=== PATIENT | female | born 1975 | race Caucasian/White ===

== ENCOUNTER 2022-11-01 08:06 | Emergency (ER) | payer OTHER, MEDICAID, SELFPAY ==
[2022-11-01] VITALS (8 sets, daily range): BP systolic 120; BP diastolic 73–81; PULSE 70–84; RESP 18; TEMP 36.6; O2SAT 95–98; BMI 22.6
--- NOTE | 2022-11-01 08:33 | ED_ITS ---
HPI - Back Pain/Injury General Chief Complaint: Back Pain/Injury Stated Complaint: severe back pain, difficulty walking, fever Time Seen by Provider: 11/01/22 08:15 Source: patient History of Present Illness HPI Narrative: Patient is a 47-year-old healthy female who presents with a variety of symptoms. She has been having ongoing left hip pain since about May. Has progressively gotten worse unable to weightbear. She went to orthopedics who said that there was nothing that they could for her. Over the last 5-6 days it has crossed over to her right hip she can now can not lay on either hip. Orthopedics did have do a cortisone shot in her left hip which she said helped for about 3 weeks but now she is back to where she started. She has had night sweats. She is had some weight gain. She has some chest discomfort only when she lays down at night on occasion she currently has no chest pain. No chills. She has some random hematuria that comes and goes she is been seen by Urology. She has an appoint with a new PCP but not until the end of December. Orthopedics suggested that she have a rheumatology referral. She has known osteoarthritis in her left hand however it does not appear based on x-rays and CTs done at outside facilities that I do not have records of that there is no arthritis according to patient. Patient is overall extremely frustrated she feels like something is wrong she can not get comfortable she takes [id number] medications Tylenol ibuprofen without any sort of relief. Related Data Previous Rx's Medication Instructions Recorded hydrochlorothiazide 12.5 mg capsule 12.5 mg PO DAILY Edema #30 caps 02/06/19 cyclobenzaprine 5 mg tablet 5 mg PO TID PRN muscle spasm #10 11/01/22 tabs lidocaine 5 % topical patch 1 patch topical DAILY PRN pain 11/01/22 (scale score 4-6) #30 ea prednisone 10 mg tablet 10 mg PO DAILY #30 tabs 11/01/22 Allergies Allergy/AdvReac Type Severity Reaction Status Date / Time Penicillins [PENICILLINS] Allergy Unknown Unverified 02/06/19 10:09 Review of Systems Review of Systems ROS Unobtainable: All systems reviewed & are unremarkable except as noted in HPI and below Patient History Medical History Abnormal Pap smear of cervix (~1992) Cervical cancer (~1992) Dysentery (~2001) Fibroids (~2014) Heavy menstrual period (~2010) Ovarian cyst (~2014) Painful menstrual periods (~2010) Surgical History Anesthesia Status post laparoscopic hysterectomy (~01/19/18) Family History Father Seizure Mother Colon cancer Social History Smoking Status: Current some day smoker Smoking Status: Current some day smoker Exam Initial Vital Signs Initial Vital Signs: Vital Signs Temperature 97.8 F 11/01/22 08:10 Pulse Rate 84 11/01/22 08:10 Respiratory Rate 18 11/01/22 08:10 Blood Pressure 120/73 11/01/22 08:10 Pulse Oximetry 98 11/01/22 08:10 Oxygen Delivery Method 11/01/22 08:10 GENERAL: Alert tearful 47-year-old female and in no acute distress. HEENT: Head atraumatic,EOMI, pupils reactive, face symmetric, moist mucous membranes CARDIOVASCULAR: Regular rate and rhythm without murmurs, rubs or gallops. RESPIRATORY: Breath sounds equal bilaterally, no wheezes rales or rhonchi. ABDOMEN: Soft, nontender. Normoactive bowel sounds all 4 quadrants. No guarding or rebound. BACK: No vertebral tenderness no step-offs, tender and sacroiliac joints. : No CVA tenderness EXTREMITIES: Normal range of motion, no clubbing or edema. Neurovascularly intact. No pain with internal external flexion no pain with direct palpation on iliac crests. Pain only with weight-bearing in hips. NEUROLOGICAL: Alert and oriented x4.Normal gait and speech. SKIN: Warm, dry, no laceration, no petechiae, no rashes or lesions. Course Orders Ordered: ED Orders 11/01/22 08:30 Urinalysis and Microscopic Stat 11/01/22 08:31 CBC Auto Diff [Complete Blood Count AUTO DIFF] Stat CMP [Comprehensive Metabolic Panel] Stat CRP [C-Reactive Protein Quant] Stat ESR [Erythrocyte Sedimentation Rate] Stat Lactate (Lactic Acid) Stat Procalcitonin Stat RF [Rheumatoid Factor] Stat Vital Signs Vital signs: Vital Signs - 8 hr 01/29/23 08:10 11/01/22 08:30 11/01/22 09:00 Temperature 97.8 F Pulse Rate 84 83 75 Respiratory Rate 18 18 Blood Pressure 120/73 120/73 Pulse Oximetry 98 96 96 Oxygen Delivery Method Room Air 11/01/22 09:30 Temperature Pulse Rate 70 Respiratory Rate Blood Pressure Pulse Oximetry 98 Oxygen Delivery Method MDM - Back Pain/Injury Lab Data 11/01/22 08:31 11/01/22 08:31 Labs: Lab Results 11/01/22 11/01/22 11/01/22 Range/Units 08:30 08:31 08:31 WBC 7.0 (4.5-11.0) X10^3/uL RBC 4.54 (4.0-5.2) X10^6/uL Hgb 14.1 (12.0-16.0) g/dL Hct 42.1 (36-46) % MCV 92.8 (80-100) fL MCH 31.0 (26-34) PG MCHC 33.4 (30-36) % RDW 12.5 (11.6-14.8) % Plt Count 420 H (150-400) X10^3/uL Neut % (Auto) 58.9 (50-75) % Lymph % (Auto) 31.2 (25-40) % Nelson % (Auto) 8.5 (3-14) % Eos % (Auto) 1.1 L (2-4) % Baso % (Auto) 0.3 (0-2) % Neut # (Auto) 4100 (1971-0177) /uL Lymph # (Auto) 2200 (6804-6350) /uL Nelson # (Auto) 600 (0-900) /uL Eos # (Auto) 100 (0-450) /uL Baso # (Auto) 0 (0-100) /uL ESR 3 (0-20) MM/HR Sodium 140 (137-145) mmol/L Potassium 4.0 (3.4-5.1) mmol/L Chloride 104 (98-107) mmol/L Carbon Dioxide 23 (22-32) mmol/L BUN 8 (7-17) mg/dL Creatinine 0.55 (0.52-1.04) mg/dL Estimated GFR > 60 (>60) mL/min BUN/Creatinine Ratio 14.5 (6-22) Glucose 87 (70-100) mg/dL Lactate (0.7-2.1) mmol/L Calcium 9.6 (8.4-10.2) mg/dL Total Bilirubin 0.5 (0.2-1.3) mg/dL AST 37 H (14-36) IU/L ALT 27 (<35) IU/L Alkaline Phosphatase 69 (38-126) U/L C-Reactive Protein < 0.5 (<1.0) mg/dL Total Protein 7.9 (6.3-8.2) g/dL Albumin 4.6 (3.5-5.0) g/dL Globulin 3.3 (1.7-4.1) g/dL Albumin/Globulin Ratio 1.4 (1.0-2.8) Procalcitonin (<0.5) ng/mL Urine Color Yellow Urine Appearance Clear Urine pH 6.0 (4.5-8.0) Ur Specific [place] 1.010 (1.000-1.035) Urine Protein Negative (Negative) Urine Glucose (UA) Negative (Negative) g/dL Urine Ketones Negative (NEGATIVE) Urine Occult Blood 2+ H (Negative) Urine Nitrate Negative (Negative) Urine Bilirubin Negative (NEGATIVE) Urine Urobilinogen 0.2 (0.2) E.U./dL Ur Leukocyte Esterase Negative (NEGATIVE) Urine RBC 1-5/hpf (0-5/HPF) Urine WBC 0-1/hpf (0-5/HPF) Ur Squamous Epith Cells 1-5 /hpf (0-5/HPF) Urine Bacteria Few (2-10) H (None) Urine Yeast 0-1/hpf (None) Ur Culture Indicated? Cult not indicated Rheumatoid Factor < 8.6 (<12.0) IU/mL 11/01/22 11/01/22 Range/Units 08:31 08:31 WBC (4.5-11.0) X10^3/uL RBC (4.0-5.2) X10^6/uL Hgb (12.0-16.0) g/dL Hct (36-46) % MCV (80-100) fL MCH (26-34) PG MCHC (30-36) % RDW (11.6-14.8) % Plt Count (150-400) X10^3/uL Neut % (Auto) (50-75) % Lymph % (Auto) (25-40) % Nelson % (Auto) (3-14) % Eos % (Auto) (2-4) % Baso % (Auto) (0-2) % Neut # (Auto) (7282-9932) /uL Lymph # (Auto) (8086-1558) /uL Nelson # (Auto) (0-900) /uL Eos # (Auto) (0-450) /uL Baso # (Auto) (0-100) /uL ESR (0-20) MM/HR Sodium (137-145) mmol/L Potassium (3.4-5.1) mmol/L Chloride (98-107) mmol/L Carbon Dioxide (22-32) mmol/L BUN (7-17) mg/dL Creatinine (0.52-1.04) mg/dL Estimated GFR (>60) mL/min BUN/Creatinine Ratio (6-22) Glucose (70-100) mg/dL Lactate 1.3 (0.7-2.1) mmol/L Calcium (8.4-10.2) mg/dL Total Bilirubin (0.2-1.3) mg/dL AST (14-36) IU/L ALT (<35) IU/L Alkaline Phosphatase (38-126) U/L C-Reactive Protein (<1.0) mg/dL Total Protein (6.3-8.2) g/dL Albumin (3.5-5.0) g/dL Globulin (1.7-4.1) g/dL Albumin/Globulin Ratio (1.0-2.8) Procalcitonin 0.04 (<0.5) ng/mL Urine Color Urine Appearance Urine pH (4.5-8.0) Ur Specific [place] (1.000-1.035) Urine Protein (Negative) Urine Glucose (UA) (Negative) g/dL Urine Ketones (NEGATIVE) Urine Occult Blood (Negative) Urine Nitrate (Negative) Urine Bilirubin (NEGATIVE) Urine Urobilinogen (0.2) E.U./dL Ur Leukocyte Esterase (NEGATIVE) Urine RBC (0-5/HPF) Urine WBC (0-5/HPF) Ur Squamous Epith Cells (0-5/HPF) Urine Bacteria (None) Urine Yeast (None) Ur Culture Indicated? Rheumatoid Factor (<12.0) IU/mL Urine Dip Bedside Urine Glucose Negative Bedside Urine Bilirubin - Negative Bedside Urine Ketone - Negative Urine Specific [place] 1.010 Bedside Urine Occult Blood ++ Bedside Urine pH 6.0 Bedside Urine Protein - Negative Bedside Urine Urobilinogen - Negative Bedside Urine Nitrite - Negative Bedside Urine Leukocytes - Negative Esterase MDM Narrative Medical decision making narrative: Patient 47-year-old female who has had a variety of symptoms ongoing since May with progressive worsening sacroiliac pain and bilateral hip pain. It hurts to ambulate and weightbear in both hips but not necessarily with internal external movement. Blood work is overall reassuring. No leukocytosis normal ESR CRP she is a negative rheumatoid factor. MELE is pending. She responded well to a cortisone shot in her left hip. She has no other signs or symptoms no bowel disease she was having chest pain but only at night. Might be beneficial for rheumatology consult however she has state see her PCP 1st. She has no back pain rare to be ankylosing spondylitis at the age of 47. She has pain in multiple joints I do not think this is avascular necrosis of the left hip. It is not bursitis. No need for antibiotics. At this time we discussed pain management at home until she got into a primary care provider. I think steroid taper would benefit her possibly lidocaine patches and she is needing something else to sleep at night as well. She and I did discuss CT scan however she is clearly ambulating there is no injury she really would benefit from an MRI of her pelvis however this is not indicated or needed emergently this could also be done as an outpatient. She u nderstands that. She declines a CT scan today. She is still frustrated but understands we did do some workup today. Discharge Plan Departure Patient Disposition: Home Clinical Impression: Sacroiliac inflammation Instructions: Sacroiliac Joint Pain, DI Sacroiliac Joint Dysfunction Activity Restrictions/Additional Instructions: *You have been diagnosed with sacroiliac pain *What to do: At this time I do not have complete diagnosis for you. However you seem to be tender in sacroiliac region. Some of your blood work is still pending and will be a send out. Other blood work today is reassuring. No need for antibiotics. *Continue to take medications as directed --> SENT TO [facility] IN [place] Prednisone 40 mg once a day for 3 days, 30 mg once a day for 3 days, 20 mg once a day for 3 days, 10 mg once a day for 3 Flexeril 5 mg every 8 hours if needed for muscle spasm may try night to help with sleeping Lidocaine patches apply to area of pain for 12 hours only then remove. *Follow up with your primary care provider in 2-3 days or call [phone] *Return to ER if you should have increasing pain fever inability to walk or any new, worsening or concerning symptoms Prescriptions: New prednisone 10 mg tablet 10 mg PO DAILY Qty: 30 0RF Rx Instructions: day 1-3: 40 mg once a day day 4-6: 30 mg once a day day 7-9: 20 mg once a day day 10-12: 10 mg once a day lidocaine 5 % adhesive patch,medicated 1 patch topical DAILY PRN (Reason: pain (scale score 4-6)) Qty: 30 0RF Rx Instructions: leave on most painful area for up to 12 hrs then remove cyclobenzaprine 5 mg tablet 5 mg PO TID PRN (Reason: muscle spasm) Qty: 10 0RF No Action hydrochlorothiazide 12.5 mg capsule 12.5 mg PO DAILY Qty: 30 2RF Referrals: Jason Iglesias, [Primary Care Provider] - Stand Alone Forms: Patient Portal/API
[2022-11-01 08:49] LABS: Appearance Urine UA CLEAR; Bilirubin Urine UA NEGATIVE (NEGATIVE); Color Urine UA YELLOW; Glucose Urine UA NEGATIVE (Negative); Ketones Urine UA NEGATIVE (NEGATIVE); Leukocyte Esterase Urine UA NEGATIVE (NEGATIVE); Nitrite Urine UA NEGATIVE (Negative); Occult Blood Urine UA 2+ (Negative); Protein Urine UA NEGATIVE (Negative); Urobilinogen Urine UA 0.2 E.U./dL (0.2)
[2022-11-01 09:07] LABS: Bacteria Urine Few (2-10); Culture Indicated Urine Cult Not Indicated; RBC Urine 1-5/HPF (0-5/HPF); Squamous Epithelial Cell Urine 1-5 /HPF (0-5/HPF); WBC Urine 0-1/HPF (0-5/HPF)
[2022-11-01 09:11] LABS: Add Manual Diff / Slide Review NO; Basophils Absolute Auto 0 /uL (0-100); Basophils Percent Auto 0.3 % (0-2); Eosinophils Absolute Auto 100 /uL (0-450); Eosinophils Percent Auto 1.1 % (2-4); Hematocrit 42.1 % (36-46); Hemoglobin 14.1 g/dL (12.0-16.0); Lymphocytes Absolute Auto 2200 /uL (1100-4500); Lymphocytes Percent Auto 31.2 % (25-40); Mean Corpuscular HGB Conc 33.4 % (30-36); Mean Corpuscular Volume 92.8 fL (80-100); Monocytes Absolute Auto 600 /uL (0-900); Monocytes Percent Auto 8.5 % (3-14); Neutrophils Absolute Auto 4100 /uL (1500-7000); Neutrophils Percent Auto 58.9 % (50-75); Platelet Count 420 X10^3/uL (150-400); Red Blood Cell Count 4.54 X10^6/uL (4.0-5.2); Red Cell Distribution Width 12.5 % (11.6-14.8)
[2022-11-01 09:16] LABS: Alanine Aminotransferase 27 IU/L (<35); Albumin 4.6 g/dL (3.5-5.0); Albumin Globulin Ratio 1.4 (1.0-2.8); Alkaline Phosphatase 69 U/L (38-126); Aspartate Aminotransferase 37 IU/L (14-36); BUN Creatinine Ratio 14.5 (6-22); Bilirubin Total 0.5 mg/dL (0.2-1.3); Blood Urea Nitrogen 8 mg/dL (7-17); C-Reactive Protein Quant < 0.5 mg/dL (<1.0); Calcium 9.6 mg/dL (8.4-10.2); Carbon Dioxide 23 mmol/L (22-32); Chloride 104 mmol/L (98-107); Estimated Glomerular Filt Rate > 60 mL/min (>60); Globulin 3.3 g/dL (1.7-4.1); Glucose 87 mg/dL (70-100); HEMOLYSIS < 15 (0-50); Rheumatoid Factor < 8.6 IU/mL (<12.0); Sodium 140 mmol/L (137-145); Total Protein 7.9 g/dL (6.3-8.2)
[2022-11-01 09:30] LABS: Erythrocyte Sedimentation Rate 3 MM/HR (0-20)
[2022-11-01 10:23] LABS: Lactate (Lactic Acid) 1.3 mmol/L (0.7-2.1)
[2022-11-01 10:43] LABS: Procalcitonin 0.04 ng/mL (<0.5)
[2022-11-10 16:31] LABS: ANA Screen, IFA Negative (.)
== END 2022-11-01 10:52 | disposition home or self-care (01) ==
PROVIDERS: Emergency Provider Emergency Medicine; PCP Family Medicine
DX: M46.1 Sacroiliitis, not elsewhere classified (principal)
CPT/HCPCS: 36415; 80053; 81001; 81003; 83605; 84145; 85025; 85651; 86038; 86140; 86430; 99283

== ENCOUNTER 2022-11-25 11:23 | Emergency (ER) | payer OTHER, MEDICAID, SELFPAY ==
--- NOTE | 2022-11-25 11:26 | DI.RAD.S_ITS ---
PROCEDURE: XR CHEST 1V INDICATIONS: chest pain TECHNIQUE: One view of the chest was acquired. COMPARISON: None. FINDINGS: Surgical changes and devices: None. Lungs and pleura: Lungs are clear. No pleural effusions or pneumothorax. Mediastinum: Mediastinal contours appear normal. Heart size is normal. Bones and chest wall: No suspicious bony lesions. Minimal levoconvex scoliotic curvature is seen. Overlying soft tissues appear unremarkable. IMPRESSION: Portable chest within normal limits. Dictated by: Kemal Marks M.D. on 11/25/2022 at 10:44 Approved by: Kemal Marks M.D. on 11/25/2022 at 10:44
[2022-11-25 11:28] VITALS: BP 164/88; PULSE 79; RESP 19; TEMP 36.9; O2SAT 99; BMI 22.8
--- NOTE | 2022-11-25 11:35 | ED_ITS ---
HPI - Chest Pain General Chief Complaint: Chest Pain Stated Complaint: Chest pain since 529 Time Seen by Provider: 11/25/22 11:26 History of Present Illness HPI narrative: 47-year-old female smoker with history of hypertension and hyperlipidemia presents by [facility] for evaluation of chest pain that started at about 530 this morning. She states that she is been having trouble sleeping and was actually already awake at 1:00 a.m.. She states her pain started while at rest and was on the right side of her chest and came in waves every 10-15 minutes. She denies any obvious provocation, palliation or radiation. She denies associated symptoms such as dizziness, weakness or lightheadedness. She has no nausea, vomiting or unexplained diaphoresis. She denies any exertional symptoms or report of exercise intolerance. She is had no recent travel, trauma and denies any lower extremity pain, swelling or redness. She was given nitro in the field and it did not affect her symptoms whatsoever. She had resolved prior to her arrival. She is been having difficulty with systemic inflammation for the past few months and has an appointment tomorrow with her PCP, there is discussion about possibly evaluating for Lyme disease. She did have a DVT in her right lower extremity when she delivered a child 12 years ago, she is had no other clots and denies any history of cancer Related Data Previous Rx's Medication Instructions Recorded hydrochlorothiazide 12.5 mg capsule 12.5 mg PO DAILY Edema #30 caps 02/06/19 cyclobenzaprine 5 mg tablet 5 mg PO TID PRN muscle spasm #10 11/01/22 tabs lidocaine 5 % topical patch 1 patch topical DAILY PRN pain 11/01/22 (scale score 4-6) #30 ea prednisone 10 mg tablet 10 mg PO DAILY #30 tabs 11/01/22 Allergies Allergy/AdvReac Type Severity Reaction Status Date / Time Penicillins [PENICILLINS] Allergy Unknown Unverified 02/06/19 10:09 Review of Systems Review of Systems Narrative: GENERAL: Denies chills, fatigue, malaise, fever, sweats. HEENT: Denies sinus pain, ear pain, sore throat, difficulty swallowing, dizziness. RESPIRATORY: Denies dyspnea, cough, wheezing, hemoptysis, sputum. CARDIOVASCULAR: See HPI GASTROINTESTINAL: Denies nausea, vomiting, abdominal pain, diarrhea, constipation, melena. : Denies dysuria, frequency, incontinence, hematuria, urinary retention. MUSCULOSKELETAL: denies weakness, joint pain, or bony pain SKIN: Denies rash, skin lesions, or other NEUROLOGIC: Denies weakness, headache, numbness, change in speech, confusion, seizures, incoordination. PSYCHIATRIC: No concerning psychosocial issues. 12 point review of systems is negative except for those stated above Patient History Medical History Abnormal Pap smear of cervix (~1992) Cervical cancer (~1992) Dysentery (~2001) Fibroids (~2014) Heavy menstrual period (~2010) Ovarian cyst (~2014) Painful menstrual periods (~2010) Surgical History Anesthesia Status post laparoscopic hysterectomy (~01/19/18) Family History Father Seizure Mother Colon cancer Social History Smoking Status: Current some day smoker Smoking Status: Current some day smoker Exam Narrative Exam Narrative: GENERAL: [47] year old patient appears stated age. Well-developed patient, in mild distress. HEAD: Atraumatic. Normocephalic. EYES: Pupils equal round and reactive. Extraocular motions intact. No scleral icterus. No injection or drainage. ENT: Nose without bleeding, purulent drainage. Throat without erythema, tonsillar hypertrophy or exudate. Airway patent. NECK: Trachea midline. Non tender CARDIOVASCULAR: Regular rate and rhythm without murmurs, gallops, or rubs. RESPIRATORY: Clear to auscultation. Breath sounds equal bilaterally. No wheezes, rales, or rhonchi. GASTROINTESTINAL: Abdomen soft, non-tender, nondistended. EXTREMITIES: No edema or joint tenderness. BACK: Nontender without deformity or crepitance. No flank tenderness. NEURO: AOx3. SKIN: No rash or erythema of visible areas Initial Vital Signs Initial Vital Signs: Vital Signs Temperature 98.4 F 11/25/22 11:28 Pulse Rate 79 11/25/22 11:28 Respiratory Rate 19 11/25/22 11:28 Blood Pressure 164/88 H 11/25/22 11:28 Pulse Oximetry 99 11/25/22 11:28 Oxygen Delivery Method 11/25/22 11:28 Scores HEART Score Heart Score history: Slightly Suspicious Heart Score EKG: Normal Heart Score Age: 45-64 years old Heart Score risk factors: 1-2 risk factors Heart Score troponin: < or = to normal limit Heart Score Total: 2 Course Orders Ordered: Discontinued Medications Sodium Chloride (Normal Saline 0.9%) 1,000 mls @ 150 mls/hr IV CONT GRZEGORZ Ketorolac Tromethamine (Ketorolac 30 Mg/Ml Vial) 15 mg IV NOW ONE Stop: 11/25/22 11:27 MDM - Chest Pain ECG Data Interpretation: [1131] EKG is normal sinus rhythm rate [74 ] and free of any signs of ischemia or ectopy. No ST segmental elevation or depression. No T wave inversions MDM Narrative Medical decision making narrative: CC: Episodic right-sided chest pain for few hours, resolved prior to arrival. Complicating co-morbidities: Hypertension, prior clot Data collected from: Patient Medical records reviewed: Prior ED records reviewed Differential considered, but not limited to: Cardiac ischemia, pulmonary embolism, inflammatory change, pericarditis, pneumonia versus other Exam documented above, pertinent findings include: No reproducible pain, heart rate regular, no increased work of breathing Lab Test results independently reviewed as above. Pertinent findings: Independently reviewed EKG as above Imaging studies independently reviewed: NAP Patient elected to leave before any diagnostics could be performed. She is awake and alert with clear thought process, clear speech and capacity to make her own decisions. She understands that though our suspicions are low for a life-threatening disease that we are obviously unable to rule out any life- threatening conditions without the workup initially discussed. She understands that our recommendations are to complete this workup including labs, repeat EKGs and the risk of leaving against medical advice could include our inability to diagnose, treat and possibly intervene upon a medical condition that could be life-threatening or leave her permanently disabled. She has an appointment tomorrow and would prefer to go that route rather than stay. She understands that she may return immediately or at any time for any change in her thought process Discharge Plan Departure Patient Disposition: Left Against Medical Advice Clinical Impression: Left against medical advice Prescriptions: No Action hydrochlorothiazide 12.5 mg capsule 12.5 mg PO DAILY Qty: 30 2RF prednisone 10 mg tablet 10 mg PO DAILY Qty: 30 0RF Rx Instructions: day 1-3: 40 mg once a day day 4-6: 30 mg once a day day 7-9: 20 mg once a day day 10-12: 10 mg once a day lidocaine 5 % adhesive patch,medicated 1 patch topical DAILY PRN (Reason: pain (scale score 4-6)) Qty: 30 0RF Rx Instructions: leave on most painful area for up to 12 hrs then remove cyclobenzaprine 5 mg tablet 5 mg PO TID PRN (Reason: muscle spasm) Qty: 10 0RF Stand Alone Forms: Against Medical Advice
[2022-11-25 11:53] VITALS: PULSE 81; RESP 16; O2SAT 97
[2022-11-25 11:54] VITALS: BP 105/60; PULSE 81; RESP 16; O2SAT 96
[2022-11-25 11:57] VITALS: BP 107/61; PULSE 78; RESP 16; O2SAT 96
[2022-11-25 12:00] VITALS: BP 104/59; PULSE 76; RESP 18; O2SAT 95
--- NOTE | 2022-11-25 12:25 | PC.NURSE ---
Went in to pt room to draw blood for labs and pt told me she wanted IV removed. States she did not have time to wait for labs. States she has appointment tomorrow with her primary care doc so she doesn't need to wait in the ED today. States she is going to leave with her to pick her son up from school. Physician advised. Pt signed AMA paperwork. Charge aware.
== END 2022-11-25 12:21 | disposition left against medical advice (07) ==
PROVIDERS: Emergency Provider Emergency Medicine; PCP Family Medicine
DX: R07.9 Chest pain, unspecified (principal)
CPT/HCPCS: 71045; 93005; 99283

== ENCOUNTER → 2022-11-26 11:18 | Outpatient (CLI) | payer OTHER, MEDICAID, SELFPAY ==
[2022-11-26 12:04] LABS: Erythrocyte Sedimentation Rate 5 MM/HR (0-20)
[2022-11-26 12:20] LABS: Free T4, Direct Thyroxine 1.03 ng/dL (0.78-2.19)
[2022-11-26 12:34] LABS: Thyroid Stimulating Hormone 2.24 uIU/mL (0.47-4.68)
== END ==
PROVIDERS: PCP Family Medicine; Referring Provider Family Medicine; Visit Provider Family Medicine
DX: M35.3 Polymyalgia rheumatica (principal); M25.50 Pain in unspecified joint; M79.18 Myalgia, other site
CPT/HCPCS: 36415; 84439; 84443; 85651; 86617

== ENCOUNTER → 2022-12-20 13:38 | Outpatient (CLI) | payer OTHER, MEDICAID, SELFPAY ==
--- NOTE | 2022-12-20 13:41 | DI.MRI.S_ITS ---
PROCEDURE: MR HIP LT WO CON INDICATIONS: Chronic L hip pain TECHNIQUE: Noncontrast coronal T1 spin echo and STIR through the bony pelvis. Coronal and axial T2 fast spin echo with fat saturation, sagittal T1 spin echo, and oblique axial T2 fast spin echo with fat saturation through the hip. COMPARISON: None. FINDINGS: Image quality: Excellent. Bones and joints: Mild bilateral hip joint osteoarthritic changes are seen with superior joint space narrowing and mild subchondral sclerosis. Mild prominence of left superior anterior femoral head neck junction is seen which can be seen associated with CAM type femoral acetabular impingement. No intraosseous lesions or fractures. No avascular necrosis of the femoral heads. The visualized lower lumbar spine appears normally aligned. Tendons and ligaments: Distal left gluteus medius and minimus tendinosis and low-grade partial-thickness tear at their insertion on greater trochanter is seen , without associated muscle atrophy. The nearby proximal iliotibial band also appears intact. The iliopsoas tendon appears intact, without adjacent bursal fluid collections or evidence for impingement syndrome. The origin of the hamstring tendon is intact at the ischial tuberosity, as well as the associated sacrotuberous ligament. The straight and reflected heads of the rectus femoris muscle origin appear intact, as well as the conjoint tendon. The ligamentum teres appears intact where visualized. Labrum and cartilage: Mild thinning of cartilage of the femoral head is seen. There is subtle signal abnormality and contour irregularity involving superior anterior left hip labrum at 12 to 1 o'clock position suggestive of subtle superior anterior left hip labral tear. The alpha angle of the femur is within normal limits at less than 55 degrees. Soft tissues: Visualized muscles demonstrate normal bulk and internal signal. Quadratus femoris muscle demonstrates no internal edema to suggest ischiofemoral impingement. The proximal sciatic neurovascular bundle appears normal adjacent to the hamstring tendons. No free pelvic fluid. Bladder wall thickness is normal. Genitourinary structures and bowel loops appear normal where visualized. IMPRESSION: 1. Mild bilateral hip joint osteoarthritis. No hip fracture or dislocation. No evidence of avascular necrosis. Prominence of superior anterior left femoral head neck junction which can be seen associated with CAM type femoral acetabular impingement. 2. Distal left gluteus medius and minimus tendinosis and low-grade partial-thickness tear. No other muscle or tendon signal abnormalities. 3. Suggestion of subtle superior anterior left hip labral tear at 12 to 1 o'clock position. Dictated by: Albert Nick M.D. on 12/21/2022 at 8:36 Approved by: Albert Nick M.D. on 12/21/2022 at 8:45
== END ==
PROVIDERS: PCP Family Medicine; Referring Provider Family Medicine; Visit Provider Family Medicine
DX: S76.012A Strain of muscle, fascia and tendon of left hip, initial encounter (principal); M16.0 Bilateral primary osteoarthritis of hip; M25.552 Pain in left hip; G89.29 Other chronic pain
CPT/HCPCS: 73721

== ENCOUNTER → 2023-01-06 09:07 | Outpatient (CLI) | payer OTHER, MEDICAID, SELFPAY ==
--- NOTE | 2023-01-06 09:09 | DI.RAD.S_ITS ---
PROCEDURE: XR HIP W PEL IF DONE SANTI MIN 4V INDICATIONS: Chronic Bilateral Hip pain TECHNIQUE: AP pelvis with lateral views of each hip. COMPARISON: None. FINDINGS: Bones: No acute fractures or dislocations. Pelvic ring appears intact. No suspicious bony lesions. Mild joint space narrowing is seen in the hips bilaterally. Mild degenerative changes are seen in the lumbar spine. Soft tissues: The visualized bowel gas pattern is normal. No suspicious soft tissue calcifications. IMPRESSION: Mild bilateral hip osteoarthrosis. Approved by: Gabo Ellison M.D. on 01/06/2023 at 12:15
== END ==
PROVIDERS: PCP Family Medicine; Referring Provider Anesthesiology; Visit Provider Family Medicine
DX: M16.0 Bilateral primary osteoarthritis of hip (principal); M25.551 Pain in right hip; M25.552 Pain in left hip; S73.192A Other sprain of left hip, initial encounter; S76.012A Strain of muscle, fascia and tendon of left hip, initial encounter; M25.859 Other specified joint disorders, unspecified hip
CPT/HCPCS: 73522; 99214

== ENCOUNTER → 2023-02-20 10:31 | Outpatient (CLI) | payer OTHER, MEDICAID, SELFPAY ==
--- NOTE | 2023-02-20 10:33 | DI.CT.S_ITS ---
PROCEDURE: CT HIP LEFT WITHOUT CON INDICATIONS: Gluteal tendinitis, left hip TECHNIQUE: Noncontrast 3 mm axial sections acquired through the bony pelvis. Additional 3 mm axial sections acquired through the symptomatic hip joint, with coronal and sagittal reformats. COMPARISON: None. FINDINGS: Image quality: Excellent. Bones: No fracture or osseous lesion. Periarticular osteophyte formation at the hip joint. Soft tissues: Grossly unremarkable. Visualized bowel loops are within normal limits. No regional adenopathy. IMPRESSION: Osteoarthritis. No acute fracture. No osseous lesion. If symptoms and/or clinical suspicion for pathology persist, further assessment with repeat, or advanced imaging (e.g., CT, MRI, or bone scan) may be helpful for further assessment. Dictated by: Kai Rodriguez M.D. on 02/20/2023 at 10:04 Approved by: Kai Rodriguez M.D. on 02/20/2023 at 10:05
== END ==
PROVIDERS: PCP Family Medicine; Referring Provider Orthopaedic Surgery; Visit Provider Orthopaedic Surgery
DX: M25.859 Other specified joint disorders, unspecified hip (principal); M76.02 Gluteal tendinitis, left hip
CPT/HCPCS: 73700

== ENCOUNTER → 2023-04-11 10:39 | Outpatient (CLI) | payer OTHER, MEDICAID, SELFPAY ==
--- NOTE | 2023-04-11 10:40 | DI.CT.S_ITS ---
PROCEDURE: CT SINUS SCREEN WO CON INDICATIONS: Chronic pansinusitis Headache, unspecified TECHNIQUE: Noncontrast 3.0 mm axial images acquired from the frontal sinuses to the mid-sella, with coronal and sagittal reformats. For radiation dose reduction, the following was used: automated exposure control, adjustment of mA and/or kV according to patient size. COMPARISON: None. FINDINGS: Image quality: Excellent. Maxillary Sinuses: No bony remodeling or destruction. Small mucous retention cyst within the left maxillary sinus. Sinuses are otherwise clear. Ethmoid Air Cells: No bony remodeling or destruction. Sinuses are clear. Sphenoid Sinuses: No bony remodeling or destruction. Sinuses are clear. Aeration of the left anterior clinoid process and pterygoid recesses bilaterally. Frontal Sinuses: No bony remodeling or destruction. Sinuses are clear. Ostiomeatal Complexes: Ostiomeatal complexes are patent. No Tobi cells. Miscellaneous: Visualized intra-orbital contents are normal. No austin bullosa or paradoxical turbinate curvature. No nasal septal deviation. IMPRESSION: A small mucous retention cyst within the left maxillary sinus. Otherwise, no significant paranasal sinus disease. Dictated by: Ross Ferreira M.D. on 04/13/2023 at 14:48 Approved by: Ross Ferreira M.D. on 04/13/2023 at 14:56
== END ==
PROVIDERS: PCP Family Medicine; Referring Provider Otolaryngology; Visit Provider Otolaryngology
DX: J32.4 Chronic pansinusitis (principal); J34.1 Cyst and mucocele of nose and nasal sinus; R51.9 Headache, unspecified; R22.0 Localized swelling, mass and lump, head
CPT/HCPCS: 70486

== ENCOUNTER → 2024-02-12 12:45 | Outpatient (CLI) | payer OTHER, MEDICAID, SELFPAY ==
--- NOTE | 2024-02-12 | DI.CT.S_ITS ---
PROCEDURE: CT UE LT WO CON INDICATIONS: Displaced fracture of fifth metacarpal bone TECHNIQUE: Noncontrast 1 mm axial sections acquired through the carpal bones, with coronal and sagittal reformats. COMPARISON: [facility] [place], [place], XR HAND 3+ VIEWS RIGHT, 12/27/2023, 12:09. FINDINGS: Image quality: Excellent. Bones: Mildly displaced extra-articular fracture at the base of the 5th metacarpal demonstrates callus formation. There is mild dorsal displacement of the dominant distal fracture fragment (5/76). Fracture plane remains conspicuous (6/114). Moderate 1st CMC and mild STT joint space narrowing. Ossific density at the radial base of the 1st CMC joint likely represents degenerative change/sequela of remote injury (6/96). Degenerative cystic lucencies in the triquetrum (6/114). Soft tissues: No soft tissue swelling or radiopaque foreign body. No vascular calcifications. No soft tissue mass. IMPRESSION: 1. Mildly displaced, extra-articular fracture at the base of the 5th metacarpal demonstrates osseous healing. Mild dorsal displacement of the dominant fracture fragment. Fracture plane remains conspicuous. 2. 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 Ossific density at the radial base of the 1st CMC joint likely represents degenerative change/sequela of remote injury. 3. Degenerative cystic lucencies in the triquetrum. Dictated by: Yonny Carpio M.D. on 02/13/2024 at 8:03 Approved by: Yonny Carpio M.D. on 02/13/2024 at 8:10
== END ==
PROVIDERS: PCP Family Medicine; Referring Provider Orthopaedic Surgery; Visit Provider Orthopaedic Surgery
DX: S62.317D Displaced fracture of base of fifth metacarpal bone, left hand, subsequent encounter for fracture with routine healing (principal); M18.12 Unilateral primary osteoarthritis of first carpometacarpal joint, left hand; M19.042 Primary osteoarthritis, left hand; X58.XXXD Exposure to other specified factors, subsequent encounter
CPT/HCPCS: 73200

== ENCOUNTER → 2024-03-06 13:29 | Outpatient (CLI) | payer OTHER, MEDICAID, SELFPAY | PROVIDERS: PCP Family Medicine; Referring Provider Family Medicine; Visit Provider Family Medicine | DX: B82.9 Intestinal parasitism, unspecified (principal) | CPT/HCPCS: 87177 ==

== ENCOUNTER → 2024-04-13 09:41 | Outpatient (CLI) | payer OTHER, MEDICAID, SELFPAY ==
--- NOTE | 2024-04-13 09:42 | DI.RAD.S_ITS ---
PROCEDURE: XR HIP W PEL IF DONE SANTI MIN 4V INDICATIONS: Bilateral hip pain TECHNIQUE: AP pelvis with lateral view(s) of the both hip(s). COMPARISON: [facility], CR, XR HIP W PEL IF DONE SANTI 3TO4V, 01/06/2023, 9:06. FINDINGS: Bones: Mild bilateral hip arthrosis, similar to prior. No acute displaced fracture or dislocation. Soft tissues: No suspicious calcifications. IMPRESSION: Mild bilateral hip arthrosis, similar to prior. If there is high concern for further derangement, consider MRI evaluation. Dictated by: Yaazn Sykes M.D. on 04/13/2024 at 14:06 Approved by: Yazan Sykes M.D. on 04/13/2024 at 14:06
== END ==
PROVIDERS: PCP Family Medicine; Referring Provider Anesthesiology; Visit Provider Anesthesiology
DX: M16.0 Bilateral primary osteoarthritis of hip (principal); S76.012A Strain of muscle, fascia and tendon of left hip, initial encounter; S73.192A Other sprain of left hip, initial encounter; M67.959 Unspecified disorder of synovium and tendon, unspecified thigh; M25.859 Other specified joint disorders, unspecified hip; M70.61 Trochanteric bursitis, right hip; M70.62 Trochanteric bursitis, left hip
CPT/HCPCS: 73522; 99213